=== PATIENT | female | born 1940 | race African-American/Black ===

== ENCOUNTER 2018-01-30 05:19 | Emergency (ER) | payer MEDICARE, OTHER ==
[~2018-01-30] VITALS: Ht 160 cm; Wt 67.9 kg
[~2018-01-30 05:19] MED LIST: FLUT1DIS3 IH; MELO-106 PO; VALS1TAB2 PO
[2018-01-30 06:48] VITALS: BP 175/84
== END 2018-01-30 07:01 | disposition home or self-care (01) ==
LOC: ER 05:19
DX: J45.909 Unspecified asthma, uncomplicated (principal); I10 Essential (primary) hypertension; E78.00 Pure hypercholesterolemia, unspecified; Z88.0 Allergy status to penicillin
CPT/HCPCS: 99284

== ENCOUNTER 2019-01-27 22:12 | Inpatient (IN) | payer MEDICARE, OTHER ==
[~2019-01-27] VITALS: Ht 157.5 cm; Wt 63.5 kg
[~2019-01-27 22:12] MED LIST changes: +ATOR10TA69 MT; +DOXY150T9 MT; +LOSA25TA12 MT
[2019-01-27 23:31] LABS: BASOPHILS % 1.3 % (0.0-2.0); HEMATOCRIT. 40.8 % (36.0-48.0); HEMOGLOBIN. 13.1 g/dL (12.0-16.0); MEAN CORPUSCULAR HEMOGLOBIN 26.3 pg (28.0-32.0); MEAN CORPUSCULAR VOLUME 81.8 fL (81.0-99.0); MEAN PLATELET VOLUME 8.7 fl (7.4-10.4); MONOCYTES % 8.1 % (2.0-8.0); NEUTROPHILS % 66.6 % (40.0-76.0); PLATELET 216 x1000/uL (130-400); RED BLOOD CELL COUNT 4.99 mill/uL (4.2-5.4); RED CELL DISTRIBUTION WIDTH 14.6 % (11.6-14.6)
[2019-01-27 23:37] LABS: CHLORIDE 110 mEq/L (98-107)
[2019-01-27 23:41] LABS: ETHANOL BLOOD < 10 mg/dL
[2019-01-28 05:50] VITALS: BP 177/76
[2019-01-28 05:52] VITALS: BP 177/76
[2019-01-28] MEDS ORDERED: HYDROMORPHONE HCL/PF 2MG/ML CPJ IV PRN (08:15)
[2019-01-28] MEDS ORDERED: HYDRALAZINE 20MG/ML VIAL IV PRN (08:15)
[2019-01-28] MEDS ORDERED: GUAIFENESIN 200MG/10ML SUGAR FREE UDC PO PRN (08:15)
[2019-01-28] MEDS ORDERED: ACETAMINOPHEN 325MG TABLET PO PRN (08:15)
[2019-01-28] MEDS ORDERED: IPRATROPIUM/ALBUTEROL 0.5-3(2.5)MG/3ML NEB INH PRN (08:15)
[2019-01-28] MEDS ORDERED: DIPHENHYDRAMINE 50MG/ML VIAL IV PRN (08:15)
[2019-01-28] MEDS ORDERED: NA PHOS,M-B/NA PHOS,DI-BA ENEMA 118ML PR PRN (08:15)
[2019-01-28] MEDS ORDERED: LORAZEPAM 2MG/ML CPJ IV PRN (08:15)
[2019-01-28] MEDS ORDERED: DOCUSATE SODIUM 100MG CAPSULE PO PRN (08:15)
[2019-01-28] MEDS ORDERED: ONDANSETRON HCL 4MG/2ML INJ IV PRN (08:15)
[2019-01-28] MEDS ORDERED: CLONIDINE 0.1MG TABLET PO PRN (08:15)
[2019-01-28] MEDS ORDERED: MAGNESIUM/ALUMINUM HYDROXIDE/SIMETHICONE 30ML UDC PO PRN (08:15)
[2019-01-28] MEDS: ASPIRIN 81MG EC TABLET PO SCH (09:00)
[2019-01-28] MEDS: HYDROCODONE/ACETAMINOPHEN 10/325MG TABLET PO PRN (09:01)
[2019-01-28] MEDS: ENOXAPARIN 40MG/0.4ML SYR SUBCUT SCH (09:01)
[2019-01-28 12:00] VITALS: BP 137/69
[2019-01-28 12:05] VITALS: BP 144/80
[2019-01-28] MEDS: SODIUM CHLORIDE 0.9% INJ 3ML FLUSH IVF SCH ×2 (14:00→21:18)
[2019-01-28 16:00] VITALS: BP 144/72
[2019-01-28 17:06] LABS: CREATINE KINASE 134 IU/L (26-192)
[2019-01-28 17:07] LABS: CREATINE KINASE MB FRACTION 1.3 ng/mL (0.5-3.6)
[2019-01-28 20:00] VITALS: BP 147/72
[2019-01-29] VITALS: BP 143/71
[2019-01-29 00:02] LABS: CREATINE KINASE 127 IU/L (26-192)
[2019-01-29 00:03] LABS: CREATINE KINASE MB FRACTION < 1.0 ng/mL (0.5-3.6)
[2019-01-29 04:00] VITALS: BP 139/76
[2019-01-29] MEDS: SODIUM CHLORIDE 0.9% INJ 3ML FLUSH IVF SCH ×3 (05:34→21:23)
[2019-01-29 08:00] VITALS: BP 136/73
[2019-01-29 08:13] LABS: BASOPHILS % 1.3 % (0.0-2.0); EOSINOPHILS % 8.9 % (0.0-5.0); HEMATOCRIT. 38.6 % (36.0-48.0); HEMOGLOBIN. 13.1 g/dL (12.0-16.0); LYMPHOCYTES % 20.1 % (20.0-50.0); MEAN CORPUSCULAR HEMOGLOBIN 27.6 pg (28.0-32.0); MEAN CORPUSCULAR VOLUME 81.6 fL (81.0-99.0); MEAN PLATELET VOLUME 9.5 fl (7.4-10.4); MONOCYTES % 8.5 % (2.0-8.0); NEUTROPHILS % 61.2 % (40.0-76.0); PLATELET 199 x1000/uL (130-400); RED BLOOD CELL COUNT 4.73 mill/uL (4.2-5.4); RED CELL DISTRIBUTION WIDTH 14.2 % (11.6-14.6)
[2019-01-29] MEDS: ASPIRIN 81MG EC TABLET PO SCH (08:30)
[2019-01-29] MEDS: ENOXAPARIN 40MG/0.4ML SYR SUBCUT SCH (08:30)
[2019-01-29 08:34] LABS: CHLORIDE 110 mEq/L (98-107)
[2019-01-29 08:44] LABS: LDL CHOLESTEROL 89 mg/dL (5-100)
[2019-01-29 08:46] LABS: HDL CHOLESTEROL 59 mg/dL (40-59); T4 FREE 0.82 ng/dL (0.76-1.46)
[2019-01-29 11:36] VITALS: BP_SYST 125; BP_SYST 130; BP_DIAS 69; BP_DIAS 78
[2019-01-29 15:50] VITALS: BP 123/70
[2019-01-29 20:00] VITALS: BP 130/68
[2019-01-29 21:37] LABS: CLARITY URINE CLEAR (CLEAR); COLOR URINE YELLOW (YELLOW); KETONES URINE NEGATIVE (NEGATIVE); LEUKOCYTE ESTERASE URINE NEGATIVE (NEGATIVE); NITRITE URINE NEGATIVE (NEGATIVE); OCCULT BLOOD URINE NEGATIVE (NEGATIVE); PH URINE 6.5 (4.5-8.0); PROTEIN URINE NEGATIVE (NEGATIVE); SPECIFIC GRAVITY URINE 1.013 (1.005-1.030); UROBILINOGEN URINE 0.2 E.U./dL (0.2-1.0)
[2019-01-30] VITALS: BP 130/71
[2019-01-30 04:00] VITALS: BP 133/70
[2019-01-30] MEDS: SODIUM CHLORIDE 0.9% INJ 3ML FLUSH IVF SCH ×3 (05:36→21:11)
[2019-01-30 07:43] LABS: CHLORIDE 110 mEq/L (98-107)
[2019-01-30] MEDS ORDERED: IBUPROFEN 400MG TABLET PO PRN (07:45)
[2019-01-30] MEDS: ASPIRIN 81MG EC TABLET PO SCH (07:56)
[2019-01-30] MEDS: ENOXAPARIN 40MG/0.4ML SYR SUBCUT SCH (07:56)
[2019-01-30 08:00] VITALS: BP 146/69
[2019-01-30 09:46] LABS: BASOPHILS % 1.5 % (0.0-2.0); EOSINOPHILS % 10.3 % (0.0-5.0); HEMATOCRIT. 40.1 % (36.0-48.0); HEMOGLOBIN. 12.7 g/dL (12.0-16.0); LYMPHOCYTES % 32.7 % (20.0-50.0); MEAN CORPUSCULAR HEMOGLOBIN 26.8 pg (28.0-32.0); MEAN CORPUSCULAR VOLUME 84.5 fL (81.0-99.0); MEAN PLATELET VOLUME 9.8 fl (7.4-10.4); MONOCYTES % 10.4 % (2.0-8.0); NEUTROPHILS % 45.1 % (40.0-76.0); PLATELET 147 x1000/uL (130-400); RED BLOOD CELL COUNT 4.75 mill/uL (4.2-5.4); RED CELL DISTRIBUTION WIDTH 15.3 % (11.6-14.6)
[2019-01-30 12:00] VITALS: BP 128/68
[2019-01-30 16:00] VITALS: BP 133/70
[2019-01-30 20:00] VITALS: BP 139/69
[2019-01-30] MEDS: HYDROCODONE/ACETAMINOPHEN 10/325MG TABLET PO PRN (21:59)
[2019-01-31] VITALS: BP 136/59
[2019-01-31 04:00] VITALS: BP 125/54
[2019-01-31] MEDS: SODIUM CHLORIDE 0.9% INJ 3ML FLUSH IVF SCH ×2 (05:18→14:34)
[2019-01-31 08:48] VITALS: BP 144/81
[2019-01-31] MEDS: ASPIRIN 81MG EC TABLET PO SCH (09:18)
[2019-01-31] MEDS: ENOXAPARIN 40MG/0.4ML SYR SUBCUT SCH (09:19)
[2019-01-31 10:00] VITALS: BP 144/81
[2019-01-31 12:50] VITALS: BP 118/70
[2019-01-31] MEDS: HYDROCODONE/ACETAMINOPHEN 10/325MG TABLET PO PRN (14:33)
[2019-01-31 16:34] VITALS: BP 149/71
== END 2019-01-31 17:05 | disposition home health service (06) | DRG 48 ==
LOC: ER 22:12 → 6WST 01-28 02:52 → EDBEDREQ 01-28 02:54 → EDBEDREQDT 01-28 02:54 → EDBEDREQTM 01-28 02:54 → ENRESERV 01-28 04:42
PROVIDERS: ADMIT Internal Medicine; ATTEND Internal Medicine
DX: G90.8 Other disorders of autonomic nervous system (principal); E87.8 Other disorders of electrolyte and fluid balance, not elsewhere classified; I10 Essential (primary) hypertension; J45.909 Unspecified asthma, uncomplicated; Z96.651 Presence of right artificial knee joint; Z88.0 Allergy status to penicillin
CPT/HCPCS: 36415; 71045; 80048; 80061; 80320; 82550; 82553; 83735; 83880; 84439; 84443; 84484; 93005; 93306; 93880; 99285; J1650; G0480

== ENCOUNTER 2023-06-30 22:36 | Emergency (ER) | payer MEDICARE, OTHER ==
[~2023-06-30 22:36] MED LIST changes: -LOSA25TA12 MT; +LOSA25TA26 MT
[2023-06-30 23:00] VITALS: PULSE 74
== END 2023-06-30 23:10 | disposition left against medical advice (07) ==
LOC: ER 22:36
DX: R50.9 Fever, unspecified (principal); Z53.21 Procedure and treatment not carried out due to patient leaving prior to being seen by health care provider
CPT/HCPCS: 99281

== ENCOUNTER 2023-08-05 12:54 | Emergency (ER) | payer MEDICARE, OTHER ==
[~2023-08-05] VITALS: Ht 162.6 cm; Wt 64.0 kg
[2023-08-05 12:59] VITALS: BP 114/58; PULSE 80; RESP 16; TEMP 98; O2SAT 98
[2023-08-05 14:02] LABS: BASOPHILS % 0.9 % (0.0-2.0); EOSINOPHILS % 0.4 % (0.0-5.0); HEMATOCRIT. 39.6 % (36.0-48.0); HEMOGLOBIN. 12.8 g/dL (12.0-16.0); MEAN CORPUSCULAR HEMOGLOBIN 26.5 pg (28.0-32.0); MEAN CORPUSCULAR HGB CONC 32.2 g/dL (31.0-37.0); MEAN CORPUSCULAR VOLUME 82.4 fL (81.0-99.0); MEAN PLATELET VOLUME 9.1 fl (7.4-10.4); MONOCYTES % 5.4 % (2.0-8.0); NEUTROPHILS % 80.3 % (40.0-76.0); PLATELET 172 x1000/uL (130-400); RED BLOOD CELL COUNT 4.81 mill/uL (4.2-5.4); RED CELL DISTRIBUTION WIDTH 15.3 % (11.6-14.6); WHITE BLOOD COUNT 6.4 x1000/uL (4.5-11.0)
[2023-08-05 14:11] LABS: CHLORIDE 107 mEq/L (98-107); INDEX HEMOLYSI 1 (1-3); INDEX ICTERIC 1 (1-4); INDEX LIPEMIC 1 (1-3); POTASSIUM 3.8 mEq/L (3.5-5.1); SODIUM 139 mEq/L (136-145)
[2023-08-05 14:23] LABS: ALANINE AMINOTRANSFERASE 35 IU/L (13-61); ALBUMIN 3.8 g/dL (3.4-5.0); ASPARTATE AMINOTRANSFERASE 35 IU/L (15-37); BILIRUBIN TOTAL 0.9 mg/dL (0.1-1.0); CALCIUM 9.7 mg/dL (8.5-10.1); CARBON DIOXIDE 24 mEq/L (21-32); GLUCOSE 85 mg/dL (70-105); NT PRO B-TYPE NATRIURETIC PEP 238 pg/mL (5-125); PROTEIN TOTAL 7.6 g/dL (6.0-8.3); TROPONIN I HIGH SENSITIVITY 46 ng/L (<54); UREA NITROGEN BLOOD 19 mg/dL (7-21)
== END 2023-08-05 18:00 | disposition left against medical advice (07) ==
LOC: ER 12:54
DX: R55 Syncope and collapse (principal); J45.909 Unspecified asthma, uncomplicated; I10 Essential (primary) hypertension; Z53.21 Procedure and treatment not carried out due to patient leaving prior to being seen by health care provider; Z88.0 Allergy status to penicillin
CPT/HCPCS: 36415; 71045; 80053; 83880; 84484; 85025; 93005; 99285

== ENCOUNTER 2023-12-12 15:07 | Emergency (ER) | payer MEDICARE, OTHER ==
[~2023-12-12] VITALS: Ht 157.5 cm; Wt 50.0 kg
[2023-12-12 15:10] VITALS: O2SAT 97
[2023-12-12] MEDS: KETOROLAC 30MG/ML VIAL IV STA (15:50)
[2023-12-12] MEDS: SODIUM CHLORIDE 0.9% 1,000 ML IV ONE (15:50)
[2023-12-12] MEDS: MORPHINE SULFATE 4 MG/ML CPJ (NOT FOR IM USE) IV STA (17:00)
[2023-12-12] MEDS: ONDANSETRON HCL 4MG/2ML INJ IV STA (17:01)
[2023-12-12 18:39] LABS: BASOPHILS % 1.1 % (0.0-2.0); EOSINOPHILS % 3.4 % (0.0-5.0); HEMATOCRIT. 37.2 % (36.0-48.0); LYMPHOCYTES % 15.9 % (20.0-50.0); MEAN CORPUSCULAR HEMOGLOBIN 27.1 pg (28.0-32.0); MEAN CORPUSCULAR HGB CONC 32.2 g/dL (31.0-37.0); MEAN CORPUSCULAR VOLUME 84.1 fL (81.0-99.0); MONOCYTES % 10.8 % (2.0-8.0); NEUTROPHILS % 68.8 % (40.0-76.0); PLATELET 199 x1000/uL (130-400); RED BLOOD CELL COUNT 4.42 mill/uL (4.2-5.4); RED CELL DISTRIBUTION WIDTH 14.8 % (11.6-14.6); WHITE BLOOD COUNT 6.4 x1000/uL (4.5-11.0)
[2023-12-12 18:51] LABS: ALANINE AMINOTRANSFERASE 15 IU/L (10-49); ALBUMIN 3.6 g/dL (3.2-4.8); ASPARTATE AMINOTRANSFERASE 24 IU/L (<34); BILIRUBIN TOTAL 0.6 mg/dL (0.1-1.0); CALCIUM 9.2 mg/dL (8.7-10.4); CARBON DIOXIDE 28 mEq/L (21-32); CHLORIDE 106 mEq/L (98-107); CREATINE KINASE 70 IU/L (34-145); CREATININE 0.7 mg/dL (0.6-1.0); GLUCOSE 83 mg/dL (70-105); POTASSIUM 3.5 mEq/L (3.5-5.1); PROTEIN TOTAL 6.7 g/dL (6.0-8.3); SODIUM 140 mEq/L (136-145); UREA NITROGEN BLOOD 14 mg/dL (9-23)
[2023-12-12 20:16] VITALS: BP 163/72; PULSE 69; RESP 12; TEMP 98.5
== END 2023-12-12 20:51 | disposition short-term general hospital (02) ==
LOC: ER 15:07 → CANBEDREQ 17:58 → ER 20:51
DX: S32.9XXA Fracture of unspecified parts of lumbosacral spine and pelvis, initial encounter for closed fracture (principal); J45.909 Unspecified asthma, uncomplicated; I10 Essential (primary) hypertension; Z79.899 Other long term (current) drug therapy; W18.39XA Other fall on same level, initial encounter; Y93.89 Activity, other specified; Y92.89 Other specified places as the place of occurrence of the external cause; Y99.8 Other external cause status
CPT/HCPCS: 80053; 82550; 85025; 36415; 73502; 71045; 96361; 96374; 96375; 99291; J1885; J2405; J2270; J7030; Z7610 ×2

== ENCOUNTER 2024-10-21 07:44 | Emergency (ER) | payer MEDICARE, OTHER ==
[~2024-10-21] VITALS: Ht 162.6 cm; Wt 59.0 kg
[2024-10-21 07:47] VITALS: O2SAT 98
[2024-10-21] MEDS: SODIUM CHLORIDE 0.9% 1,000 ML IV ONE (08:33)
[2024-10-21] MEDS: MORPHINE SULFATE 4 MG/ML INJ (FOR IV/IM USE) IV STA (08:33)
[2024-10-21 08:35] VITALS: BP 137/55; PULSE 59; RESP 12; TEMP 36.78072; O2SAT 100
[2024-10-21 08:35] LABS: EOSINOPHILS % 4.2 % (0.0-5.0); HEMATOCRIT. 44.4 % (36.0-48.0); LYMPHOCYTES % 25.7 % (20.0-50.0); MEAN CORPUSCULAR HEMOGLOBIN 27.1 pg (28.0-32.0); MEAN CORPUSCULAR HGB CONC 31.5 g/dL (31.0-37.0); MEAN CORPUSCULAR VOLUME 86.2 fL (81.0-99.0); MEAN PLATELET VOLUME 9.6 fl (7.4-10.4); MONOCYTES % 6.8 % (2.0-8.0); NEUTROPHILS % 62.3 % (40.0-76.0); PLATELET 156 x1000/uL (130-400); RED BLOOD CELL COUNT 5.15 mill/uL (4.2-5.4); RED CELL DISTRIBUTION WIDTH 15.5 % (11.6-14.6); WHITE BLOOD COUNT 6.8 x1000/uL (4.5-11.0)
[2024-10-21] MEDS: ONDANSETRON HCL 4MG/2ML INJ IV STA (08:57)
[2024-10-21 08:58] LABS: CHLORIDE 108 mEq/L (98-107); INR 0.9; POTASSIUM 4.1 mEq/L (3.5-5.1); PROTHROMBIN TIME 10.6 sec (9.6-11.0); SODIUM 141 mEq/L (136-145)
[2024-10-21 08:59] LABS: CARBON DIOXIDE 25 mEq/L (21-32)
[2024-10-21 09:00] LABS: CALCIUM 9.6 mg/dL (8.7-10.4)
[2024-10-21 09:05] LABS: TROPONIN I HIGH SENSITIVITY 18 ng/L (3.0-34)
[2024-10-21 09:14] LABS: GLUCOSE 116 mg/dL (70-105); UREA NITROGEN BLOOD 26 mg/dL (9-23)
[2024-10-21 09:24] LABS: CREATININE 1.2 mg/dL (0.6-1.0)
== END 2024-10-21 10:36 | disposition home or self-care (01) ==
LOC: ER 07:44 → CANBEDREQ 10:07 → ER 10:36
DX: R10.32 Left lower quadrant pain (principal); J45.909 Unspecified asthma, uncomplicated; E78.00 Pure hypercholesterolemia, unspecified; I10 Essential (primary) hypertension; Z88.0 Allergy status to penicillin; Z79.899 Other long term (current) drug therapy
CPT/HCPCS: 80048; 85025; 85610; 84484; 36415; 71045; 74176; 93005; 96361; 96374; 96375; 99285; J2405; J2270; J7030; Z7610 ×4